=== PATIENT | male | born 1980 | race Caucasian/White ===

== ENCOUNTER 2017-09-01 12:04 | Emergency (ER) | payer OTHER ==
[~2017-09-01] VITALS: Ht 185.4 cm; Wt 95.3 kg
--- NOTE | ~2017-09-01 | EKG ---
[address] [address] [place] [address] ELECTROCARDIOGRAM REPORT Name: EVER ROSENBERG Room #: DEP Lloyd#: [id number] Admission: 09/01/17 Attend Phys: Discharge: 09/01/17 Date of : 80 Report #: [id number] THIS REPORT FOR: //name// [facility] ED Test Date: 2017-09-01 Test Time: 12:20:26 Pat Name: EVER ROSENBERG Department: Room: Gender: Sand Bobber: [facility] : 1980 Requested By: Tiffanie Uriarte Order Number: [id number] MD: Raoul Gillespie Measurements Intervals [place] Rate: 56 P: 46 AL: 171 QRS: 48 QRSD: 111 T: 51 QT: 412 QTc: 398 Interpretive Statements Sinus bradycardia RSR' in V1 or V2, probably normal variant No previous ECG available for comparison Electronically Signed On 09-01-2017 16:42:34 CDT by Raoul Gillespie [email or web address] <ELECTRONICALLY SIGNED> By: Raoul Gillespie MD, [facility] 09/01/17 1642 1220 1220 Raoul Gillespie MD, FACC /EPI
[2017-09-01 13:10] VITALS: BP 142/97
== END 2017-09-01 13:12 | disposition home or self-care (01) ==
LOC: ER 12:04
DX: R06.00 Dyspnea, unspecified (principal); R06.02 Shortness of breath; F17.210 Nicotine dependence, cigarettes, uncomplicated